=== PATIENT | female | born 2000 | race Caucasian/White ===

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

== ENCOUNTER → 2018-05-29 | Outpatient (CLI) | payer OTHER ==
--- NOTE | 2018-05-29 15:13 | REP ---
COMPLETE ORBIT, SIX VIEWS: HISTORY: Contusion. There is no acute fracture or bone lesion. Mucosal thickening is present in the left maxillary sinus. IMPRESSION: Left maxillary sinus mucosal thickening. Electronically Signed by Christophe Grey MD 05/29/2018 03:14 P
--- NOTE | 2018-05-29 15:15 | REP ---
NASAL BONES, THREE VIEWS: HISTORY: Contusion. There is no acute fracture or bone lesion. Mucosal thickening is present in the left maxillary sinus. The remaining visualized sinuses are clear. IMPRESSION: Left maxillary sinus mucosal thickening. Electronically Signed by Christophe Grey MD 05/29/2018 03:23 P
== END ==
LOC: M WUC 14:20
PROVIDERS: ATTEND Physician Assistant
DX: S00.33XA Contusion of nose, initial encounter (principal); S00.03XA Contusion of scalp, initial encounter; X58.XXXA Exposure to other specified factors, initial encounter; Y92.89 Other specified places as the place of occurrence of the external cause

== ENCOUNTER → 2018-11-21 | Outpatient (REF) | payer OTHER ==
[2018-11-21 23:27] LABS: CHLAMYDIA DNA AMPLIFICATION POSITIVE (NEGATIVE); GC DNA AMPLIFICATION NEGATIVE (NEGATIVE)
== END ==
LOC: M LAB REF 16:01
PROVIDERS: ATTEND Physician Assistant
DX: N39.0 Urinary tract infection, site not specified (principal)

== ENCOUNTER → 2019-03-05 | Outpatient (REF) | payer OTHER | LOC: M LAB REF 16:13 | PROVIDERS: ATTEND Physician Assistant | DX: J02.9 Acute pharyngitis, unspecified (principal) ==

== ENCOUNTER → 2020-03-24 | Outpatient (CLI) | payer OTHER ==
[2020-03-24 12:21] LABS: BASO % 0.5 % (0.0-1.0); EOS # 0.1 10^3/uL (0.0-0.5); EOS % 2.1 % (0.0-3.0); HEMATOCRIT 35.1 % (36.0-47.0); HEMOGLOBIN 11.9 g/dl (12.0-15.5); LYMPH # 2.1 10^3/uL (1.5-5.0); LYMPH % 33.2 % (24.0-44.0); MEAN CORPUSCULAR HGB CONC 33.9 g/dl (32.0-36.5); MEAN CORPUSCULAR VOLUME 88.4 fl (80.0-96.0); MONO # 0.4 10^3/uL (0.0-0.8); MONO % 5.6 % (0.0-5.0); NEUTROPHILS # 3.7 10^3/uL (1.5-8.5); NEUTROPHILS % 58.4 % (36.0-66.0); PLATELET COUNT, AUTOMATED 263 10^3/uL (150-450); RED BLOOD COUNT 3.97 10^6/uL (4.00-5.40); WHITE BLOOD COUNT 6.2 10^3/uL (4.0-10.0)
[2020-03-24 12:50] LABS: ALBUMIN 3.4 GM/DL (3.2-5.2); ALT/SGPT 23 U/L (12-78); BILIRUBIN,TOTAL 0.5 MG/DL (0.2-1.0); BLOOD UREA NITROGEN 7 MG/DL (7-18); CALCIUM LEVEL 8.9 MG/DL (8.5-10.1); CARBON DIOXIDE LEVEL 26 MEQ/L (21-32); CHLORIDE LEVEL 106 MEQ/L (98-107); CREATININE FOR GFR 0.58 MG/DL (0.55-1.30); GLOMERULAR FILTRATION RATE > 60.0 (>60); GLUCOSE, FASTING 91 MG/DL (70-100); LIPASE 72 U/L (73-393); POTASSIUM SERUM 4.2 MEQ/L (3.5-5.1); SODIUM LEVEL 138 MEQ/L (136-145); TOTAL PROTEIN 6.7 GM/DL (6.4-8.2)
== END ==
LOC: M WUC 10:06
PROVIDERS: ATTEND Physician Assistant
DX: R19.7 Diarrhea, unspecified (principal)

== ENCOUNTER → 2020-06-07 | Outpatient (CLI) | payer OTHER ==
--- NOTE | 2020-06-07 12:51 | REP ---
INDICATION: FALL SAME LEVEL COMPARISON: None. TECHNIQUE: AP, lateral, bilateral oblique and sunrise views. FINDINGS: The osseous structures and joint spaces are intact and normal. There is no evidence for acute fracture or dislocation. No joint effusion is appreciated. Surrounding soft tissues are unremarkable. No subcutaneous emphysema or radiodense foreign body. IMPRESSION: No acute fracture or dislocation. <Electronically signed by Aurelio Greer > 06/07/20 [id number]
== END ==
LOC: M WUC 12:32
PROVIDERS: ATTEND Physician Assistant
DX: S80.01XA Contusion of right knee, initial encounter (principal); W01.0XXA Fall on same level from slipping, tripping and stumbling without subsequent striking against object, initial encounter; Y92.9 Unspecified place or not applicable

== ENCOUNTER → 2020-09-18 | Outpatient (CLI) | payer OTHER ==
[~2020-09-18] MED LIST: HYDR100T PO; HYDR50CA2 PO; OMEP-221; SERT50TA29
== END ==
LOC: M LABSMTC 11:53
PROVIDERS: ATTEND Anesthesiology
DX: Z01.812 Encounter for preprocedural laboratory examination (principal); Z20.822 Contact with and (suspected) exposure to COVID-19

== ENCOUNTER → 2020-10-21 | Outpatient (CLI) | payer OTHER ==
[~2020-10-21] MED LIST changes: +PROAAER10 INH; +SUCR1TA PO
== END ==
LOC: M LABSMTC 09:34
PROVIDERS: ATTEND Anesthesiology
DX: Z01.812 Encounter for preprocedural laboratory examination (principal); Z20.822 Contact with and (suspected) exposure to COVID-19

== ENCOUNTER 2020-10-24 12:44 | Inpatient (IN) | payer OTHER ==
[~2020-10-24] VITALS: Ht 165.1 cm; Wt 90.5 kg
[2020-10-24] MEDS ORDERED: NS 1,000 ML IV ONE (13:10)
[2020-10-24] MEDS ORDERED: ACETAMINOPHEN 500 MG TAB PO ONE (13:35)
[2020-10-24 13:45] LABS: BASO % 0.2 % (0.0-1.0); HEMATOCRIT 36.9 % (36.0-47.0); HEMOGLOBIN 12.1 g/dl (12.0-15.5); LYMPH # 1.1 10^3/uL (1.5-5.0); LYMPH % 5.7 % (24.0-44.0); MEAN CORPUSCULAR HEMOGLOBIN 29.4 pg (27.0-33.0); MEAN CORPUSCULAR HGB CONC 32.8 g/dl (32.0-36.5); MEAN CORPUSCULAR VOLUME 89.6 fl (80.0-96.0); MONO # 0.3 10^3/uL (0.0-0.8); MONO % 1.7 % (2.0-8.0); NEUTROPHILS # 17.8 10^3/uL (1.5-8.5); NEUTROPHILS % 91.8 % (36.0-66.0); PLATELET COUNT, AUTOMATED 339 10^3/uL (150-450); RED BLOOD COUNT 4.12 10^6/uL (4.00-5.40); WHITE BLOOD COUNT 19.4 10^3/uL (4.0-10.0)
[2020-10-24] MEDS ORDERED: OXYTOCIN 30 UNITS IN 0.9% NaCl 500ML IV BAG (J2590) As Ordered ONE (13:53)
[2020-10-24] MEDS ORDERED: LIDOCAINE 1% MDV 20ML VIAL As Ordered ONE (14:08)
[2020-10-24 14:53] LABS: ALBUMIN 2.9 GM/DL (3.2-5.2); ALT/SGPT 15 U/L (12-78); BILIRUBIN,DIRECT 0.1 MG/DL (0.0-0.2); BILIRUBIN,TOTAL 0.3 MG/DL (0.2-1.0); BLOOD UREA NITROGEN 13 MG/DL (7-18); CALCIUM LEVEL 8.5 MG/DL (8.5-10.1); CARBON DIOXIDE LEVEL 21 MEQ/L (21-32); CHLORIDE LEVEL 103 MEQ/L (98-107); CREATININE FOR GFR 0.87 MG/DL (0.55-1.30); GLOMERULAR FILTRATION RATE > 60.0 (>60); GLUCOSE, FASTING 90 MG/DL (70-100); HCG, SERUM QUANTITATIVE 24032 MIU/ML; LIPASE 72 U/L (73-393); POTASSIUM SERUM 3.7 MEQ/L (3.5-5.1); SODIUM LEVEL 137 MEQ/L (136-145); TOTAL PROTEIN 7.1 GM/DL (6.4-8.2)
[2020-10-24] MEDS ORDERED: MEASLES,MUMPS,RUBELLA VACCINE INJ (MMR-II) (90707) SC SCH (14:55)
[2020-10-24] MEDS ORDERED: IBUPROFEN 600MG TAB PO PRN (14:55)
[2020-10-24] MEDS ORDERED: DOCUSATE SODIUM 100MG CAPSULE PO PRN (14:55)
[2020-10-24] MEDS ORDERED: RHOGAM 300 MCG (1500 IU) INJ (J2790) IM SCH (14:55)
[2020-10-24] MEDS ORDERED: DIBUCAINE 1% OINTMENT 30GM TOP PRN (14:55)
[2020-10-24] MEDS ORDERED: OXYTOCIN DRIP 30 UNITS in IV 1 EA IV SCH (14:55)
[2020-10-24] MEDS ORDERED: LIDOCAINE 1% MDV 20ML VIAL INFIL ONE (14:55)
[2020-10-24] MEDS ORDERED: ACETAMINOPHEN TAB 650MG DOSE (2X325MG) PO PRN (14:55)
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
--- NOTE | 2020-10-24 16:08 | DNPDOC ---
[facility] Delivery Note Delivery Note DATE OF DELIVERY: 10/24/20 PREDELIVERY DIAGNOSIS: unknown gestational age in active labor with SROM POST DELIVERY DIAGNOSIS: Delivered. PROCEDURE: Spontaneous vaginal delivery FRONT DESK SUPERVISOR: Dr. Carmella Lyman MD ANESTHESIA: 1% lidocaine for vaginal repair ESTIMATED BLOOD LOSS: 200 mL. FINDINGS: 5 pounds 15 ounces (2700g) male , Score 9/9 DELIVERY SUMMARY: Glory is a 20yo [id number] s/p uncomplicated at unknown gestational age (presumed term given size and features) after presenting in active labor, delivering at 1356 on 10/24/20. She presented to ER for abdominal pain and states that she did not know she was . In the ER she was feeling the urge to p ush and was quickly brought up to L&D on a stretcher. SROM occurred at some point prior to presentation, she began feeling ctx at 0600 this morning but uncertain time of ROM. On first SCE, she was C/C/+1. With good maternal effort and a few sets of pushes, infant's head delivered OA, restituted KILEY. 1 loose nuchal cord reduced and there was a left compound hand. Left anterior shoulder delivered easily followed by posterior shoulder and corpus. was vigorous with lusty cry, apgars 9/9, placed on maternal abdomen. After approximately 4 minutes, cord was clamped x2 and cut by me. With firm traction on the cord and uterine massage, placenta delivered spontaneously and intact with centrally inserted 3 vessel cord. Bimanual massage was performed with firming of the uterus. IV pitcocin was bolused and fundus was firm at u-2cm. Inspection of vagina and perineum revealed a superficial right labial laceration and a small 1mll. 1% lidocaine was injected for anesthesia of the area. 3-0 vicryl suture was used to reapproximate the lacerations in routine fashion with complete hemostasis and excellent reapproximation. Fundus remained firm. All counts correct x2. Mom and baby were doing well when I left the room. MD Esmer Newton Katrina D MD October 24, 2020 16:08
[2020-10-24 16:20] VITALS: BP 139/74
[2020-10-24] MEDS: IBUPROFEN 800 MG TAB PO PRN (20:16)
[2020-10-25] MEDS: ACETAMINOPHEN 500 MG TAB PO PRN ×2 (02:00→20:15)
[2020-10-25 05:49] VITALS: BP 139/85
--- NOTE | 2020-10-25 07:13 | IPNPDOC ---
Progress Note Date of Service: October 25, 2020 Day#: 1 Progress Note PPD 1 SUBJECT: Glory is a 20yo [id number] s/p uncomplicated at unknown gestational age (presumed term given size and features) after presenting in active labor, delivering at 1356 on 10/24/20, doing well day # 1. She has been ambulating without lightheadedness/dizziness, voiding spontaneously without issue and tolerating regular diet. Breast feeding without issue. Reports lochia is like a normal period. No f/c/n/v/CP/SOB. OBJECTIVE: VITAL SIGNS: Within normal limits, afebrile. Alert and oriented times three. Abdomen: Fundus firm at U-2. Soft, NTTP. Extremities: no pain with palpation of calves ASSESSMENT: Glory is a 20yo [id number] s/p uncomplicated at unknown gestational age (presumed term given size and features) after presenting in active labor, delivering at 1356 on 10/24/20, doing well day # 1. Vitals within normal limits, afebrile, hemodynamically stable with no evidence of infection. PLAN: 1. Routine care 2. Tylenol and Motrin for pain. 3. Encourage breast feeding and ambulation. 4. Regular diet 5. Vitals per protocol 6. Likely discharge home tomorrow if meeting all milestones Carmella Lyman MD VS, I&O, 24H, [facility] Vital Signs/I&O Vital Signs Date Time Temp Pulse Resp B/P (MAP) Pulse Ox O2 Delivery O2 Flow Rate FiO2 10/25/20 05:49 99.0 100 20 139/85 (103) 98 Room Air I&O- Last 24 Hours up to 6 AM 10/25/20 05:59 Intake Total 800 ml Output Total 600 ml Balance 200 ml Laboratory Data 24H LABS Laboratory Tests 2 10/24/20 13:22: POC Beta HCG, Quantitative > 2000.0 10/24/20 13:23: Immature Granulocyte % (Auto) 0.6, Neutrophils (%) (Auto) 91.8H, Lymphocytes (%) (Auto) 5.7L, Monocytes (%) (Auto) 1.7L, Eosinophils (%) (Auto) 0.0, Basophils (%) (Auto) 0.2, Neutrophils # (Auto) 17.8H, Lymphocytes # (Auto) 1.1L, Monocytes # (Auto) 0.3, Eosinophils # (Auto) 0.0, Basophils # (Auto) 0.0, Nucleated Red Blood Cells % (auto) 0.0, Anion Gap 13, Glomerular Filtration Rate > 60.0, Calcium Level 8.5, Total Bilirubin 0.3, Direct Bilirubin 0.1, Aspartate Amino Transf (AST/SGOT) 18, Alanine Aminotransferase (ALT/SGPT) 15, Alkaline Phosphatase 273H, Total Protein 7.1, Albumin 2.9L, Albumin/Globulin Ratio 0.7L, Lipase 72L, Human Chorionic Gonadotropin, Quant [id number] 10/24/20 14:54: Hepatitis B Surface Antigen NEGATIVEL 10/24/20 18:29: Serology Scanned Report Hepatitis B Testing CBC/BMP Laboratory Tests 10/24/20 13:23 Carmella Lyman MD October 25, 2020 07:13
[2020-10-25] MEDS ORDERED: BOOSTRIX/ADACEL VACCINE (DIPHTH/PERTUSS/ACELL/TETANUS) 0.5ML SYR IM ONE (09:00)
[2020-10-25] MEDS: PRENATAL VITAMINS CHEWABLE TABLET PO SCH (09:49)
[2020-10-25] MEDS: IBUPROFEN 800 MG TAB PO PRN ×2 (09:50→17:26)
[2020-10-25 11:12] LABS: AMPHETAMINES URINE REFLEX NEGATIVE (NEGATIVE); BARBITURATES URINE REFLEX NEGATIVE (NEGATIVE); BENZODIAZEPINES URINE REFLEX NEGATIVE (NEGATIVE); CANNABINOIDS URINE REFLEX NEGATIVE (NEGATIVE); COCAINE METABOLITE URINE REFLE NEGATIVE (NEGATIVE); METHADONE URINE REFLEX NEGATIVE (NEGATIVE); OPIATES URINE REFLEX NEGATIVE (NEGATIVE); PHENCYCLIDINE URINE REFLEX NEGATIVE (NEGATIVE)
[2020-10-25 12:31] LABS: HIV 1&2 SCREEN CENTAUR NEGATIVE (NEGATIVE)
[2020-10-25 18:25] VITALS: BP 145/92
[2020-10-26] MEDS: IBUPROFEN 800 MG TAB PO PRN ×2 (01:37→09:50)
[2020-10-26] MEDS: ACETAMINOPHEN 500 MG TAB PO PRN (04:48)
[2020-10-26 06:00] VITALS: BP 138/90
[2020-10-26] MEDS: PRENATAL VITAMINS CHEWABLE TABLET PO SCH (08:18)
== END 2020-10-26 12:35 | disposition home or self-care (01) | DRG 560 ==
LOC: EDBD 12:44 → M ED 12:44 → M LDI 13:50 → M OBS 16:15
PROVIDERS: ADMIT Obstetrics & Gynecology; ATTEND Obstetrics & Gynecology
PROC: 10E0XZZ Delivery of Products of Conception, External Approach (ICD-10-PCS; principal; 2020-10-24)
PROC: 0HQ9XZZ Repair Perineum Skin, External Approach (ICD-10-PCS; 2020-10-24)
DX: O64.5XX0 Obstructed labor due to compound presentation, not applicable or unspecified (principal); O09.33 Supervision of pregnancy with insufficient antenatal care, third trimester; Z3A.00 Weeks of gestation of pregnancy not specified; O69.81X0 Labor and delivery complicated by cord around neck, without compression, not applicable or unspecified; O70.0 First degree perineal laceration during delivery; Z37.0 Single live birth

== ENCOUNTER → 2021-01-11 | Outpatient (REF) | payer OTHER | LOC: M SFHCWAGY 18:28 | PROVIDERS: ATTEND Obstetrics & Gynecology | DX: Z12.4 Encounter for screening for malignant neoplasm of cervix (principal) ==

== ENCOUNTER → 2022-09-05 | Outpatient (REF) | payer OTHER ==
[~2022-09-05] MED LIST changes: -OMEP-221; +OMEP40CA5
[2022-09-05 14:34] LABS: HCG, SERUM QUANTITATIVE < 2.6 MIU/ML (<4.2)
[2022-09-05 14:36] LABS: ALBUMIN 3.1 G/DL (3.2-5.2); ALKALINE PHOSPHATASE 131 U/L (46-116); ALT/SGPT 29 U/L (7.0-40); AST/SGOT 13 U/L (<34); BILIRUBIN,TOTAL 0.3 MG/DL (0.3-1.2); BLOOD UREA NITROGEN 8 MG/DL (9-23); CALCIUM LEVEL 8.9 MG/DL (8.5-10.1); CARBON DIOXIDE LEVEL 28 MMOL/L (20-31); CHLORIDE LEVEL 105 MMOL/L (98-107); CHOLESTEROL LEVEL 213 MG/DL (<200); CHOLESTEROL RISK RATIO 3.85 (<5); CREATININE FOR GFR 0.63 MG/DL (0.55-1.30); GLOMERULAR FILTRATION RATE > 60.0 (>60); GLUCOSE, FASTING 82 MG/DL (60-100); HDL CHOLESTEROL 55.2 MG/DL (>40); LDL CHOLESTEROL 132.2 MG/DL (<100); NON-HDL-C 157.8 MG/DL; POTASSIUM SERUM 4.6 MMOL/L (3.5-5.1); SODIUM LEVEL 138 MMOL/L (136-145); TOTAL PROTEIN 6.4 G/DL (5.7-8.2); TRIGLYCERIDES LEVEL 128 MG/DL (<150)
[2022-09-05 14:37] LABS: TOTAL 25(OH) VITAMIN D 19.6 NG/ML (20.0-100.0)
[2022-09-05 14:38] LABS: THYROID STIMULATING HORMONE 1.242 uIU/ML (0.55-4.78)
[2022-09-05 14:44] LABS: BASO % 0.5 % (0.0-1.0); EOS # 0.2 10^3/uL (0.0-0.5); HEMOGLOBIN 11.7 g/dl (12.0-15.5); LYMPH # 2.6 10^3/uL (1.5-5.0); LYMPH % 31.1 % (24.0-44.0); MEAN CORPUSCULAR HEMOGLOBIN 29.8 pg (27.0-33.0); MEAN CORPUSCULAR HGB CONC 33.4 g/dl (32.0-36.5); MEAN CORPUSCULAR VOLUME 89.3 fl (80.0-96.0); MONO # 0.6 10^3/uL (0.0-0.8); MONO % 6.5 % (2.0-8.0); NEUTROPHILS # 5.1 10^3/uL (1.5-8.5); NEUTROPHILS % 59.5 % (36.0-66.0); PLATELET COUNT, AUTOMATED 339 10^3/uL (150-450); RED BLOOD COUNT 3.92 10^6/uL (4.00-5.40); WHITE BLOOD COUNT 8.5 10^3/uL (4.0-10.0)
== END ==
LOC: M LAB REF 12:41
PROVIDERS: ATTEND Nurse Practitioner Family
DX: Z32.00 Encounter for pregnancy test, result unknown (principal); E66.3 Overweight

== ENCOUNTER → 2022-11-30 | Outpatient (CLI) | payer OTHER ==
[2022-11-30 15:10] LABS: HEMOGLOBIN 12.1 g/dl (12.0-15.5); MEAN CORPUSCULAR HEMOGLOBIN 29.9 pg (27.0-33.0); MEAN CORPUSCULAR HGB CONC 33.6 g/dl (32.0-36.5); MEAN CORPUSCULAR VOLUME 88.9 fl (80.0-96.0); PLATELET COUNT, AUTOMATED 295 10^3/uL (150-450); RED BLOOD COUNT 4.05 10^6/uL (4.00-5.40); WHITE BLOOD COUNT 8.4 10^3/uL (4.0-10.0)
[2022-11-30 15:52] LABS: GC DNA AMPLIFICATION NEGATIVE (NEGATIVE)
[2022-11-30 15:58] LABS: HIV 1&2 SCREEN NEGATIVE (NEGATIVE)
[2022-11-30 16:07] LABS: HEPATITIS C VIRUS ABY INDEX 0.12 INDEX (<0.8)
== END ==
LOC: M PLALAB 10:43
PROVIDERS: ATTEND Advanced Practice Midwife
DX: Z34.81 Encounter for supervision of other normal pregnancy, first trimester (principal)

== ENCOUNTER → 2022-12-15 | Outpatient (REF) | payer OTHER ==
[~2022-12-15] MED LIST changes: +BACI500O8 TOP; +CEPH500C PO
[2022-12-15 19:32] LABS: CHOLESTEROL RISK RATIO 3.51 (<5); HDL CHOLESTEROL 61.5 MG/DL (>40); LDL CHOLESTEROL 131.3 MG/DL (<100); NON-HDL-C 154.5 MG/DL
== END ==
LOC: M LAB REF 16:43
PROVIDERS: ATTEND Nurse Practitioner Family
DX: R79.89 Other specified abnormal findings of blood chemistry (principal)

== ENCOUNTER 2022-12-17 18:44 | Emergency (ER) | payer OTHER ==
[~2022-12-17] VITALS: Ht 165.1 cm; Wt 112.7 kg
[~2022-12-17 18:44] MED LIST changes: -BACI500O8 TOP; -CEPH500C PO
[2022-12-17] MEDS ORDERED: BACITRACIN OINTMENT 30GM TUBE TOP ONE (21:30)
[2022-12-17] MEDS ORDERED: CEPHALEXIN 500 MG CAP PO ONE (21:30)
[2022-12-17] MEDS ORDERED: CEPH500C PO (22:29)
[2022-12-17] MEDS ORDERED: BACI500O8 TOP (22:29)
[2022-12-17 22:49] VITALS: BP 124/72; TEMP 97.9; O2SAT 100
== END 2022-12-17 22:50 | disposition home or self-care (01) ==
LOC: M ED 18:44
DX: O26.891 Other specified pregnancy related conditions, first trimester (principal); T24.231A Burn of second degree of right lower leg, initial encounter; L03.115 Cellulitis of right lower limb; J45.909 Unspecified asthma, uncomplicated; E66.9 Obesity, unspecified; F41.9 Anxiety disorder, unspecified; F32.A Depression, unspecified; Z3A.13 13 weeks gestation of pregnancy; Z79.899 Other long term (current) drug therapy

== ENCOUNTER → 2023-01-25 | Outpatient (CLI) | payer OTHER ==
[~2023-01-25] MED LIST changes: +BACI500O8 TOP; +CEPH500C PO
== END ==
LOC: M PLALAB 12:54
PROVIDERS: ATTEND Advanced Practice Midwife
DX: O99.342 Other mental disorders complicating pregnancy, second trimester (principal)

== ENCOUNTER → 2023-01-29 | Outpatient (CLI) | payer OTHER | LOC: M WHC 08:30 | PROVIDERS: ATTEND Advanced Practice Midwife | DX: O99.332 Smoking (tobacco) complicating pregnancy, second trimester (principal); Z3A.19 19 weeks gestation of pregnancy ==

== ENCOUNTER → 2023-03-02 | Outpatient (CLI) | payer OTHER | LOC: M WHC 07:51 | PROVIDERS: ATTEND Obstetrics & Gynecology | DX: Z36.2 Encounter for other antenatal screening follow-up (principal) ==

== ENCOUNTER → 2023-03-26 | Outpatient (CLI) | payer OTHER ==
[~2023-03-26] MED LIST changes: +PRENTAB9 PO
[2023-03-26 15:12] LABS: HEMATOCRIT 32.9 % (36.0-47.0); HEMOGLOBIN 11.2 g/dl (12.0-15.5); MEAN CORPUSCULAR HEMOGLOBIN 31.3 pg (27.0-33.0); MEAN CORPUSCULAR VOLUME 91.9 fl (80.0-96.0); PLATELET COUNT, AUTOMATED 289 10^3/uL (150-450); RED BLOOD COUNT 3.58 10^6/uL (4.00-5.40); WHITE BLOOD COUNT 8.2 10^3/uL (4.0-10.0)
[2023-03-26 17:24] LABS: GC DNA AMPLIFICATION NEGATIVE (NEGATIVE)
== END ==
LOC: M PLALAB 08:24
PROVIDERS: ATTEND Obstetrics & Gynecology
DX: Z34.92 Encounter for supervision of normal pregnancy, unspecified, second trimester (principal)

== ENCOUNTER 2023-05-08 15:35 | Outpatient (CLI) | payer OTHER ==
[~2023-05-08] VITALS: Ht 165.1 cm; Wt 101.4 kg
[2023-05-08 16:00] VITALS: BP 129/94; O2SAT 97
[2023-05-08] MEDS ORDERED: HOME MED LIST COMPLETE! XX SCH (16:05)
[2023-05-08] MEDS ORDERED: IBUP-1114 PO (16:05)
== END 2023-05-08 17:05 | disposition home or self-care (01) ==
LOC: M LDO 15:35
PROVIDERS: ATTEND Specialist
DX: O26.893 Other specified pregnancy related conditions, third trimester (principal); N89.8 Other specified noninflammatory disorders of vagina; O26.23 Pregnancy care for patient with recurrent pregnancy loss, third trimester; Z3A.33 33 weeks gestation of pregnancy; Z88.0 Allergy status to penicillin; Z88.1 Allergy status to other antibiotic agents; Z88.2 Allergy status to sulfonamides
CPT/HCPCS: 59025; G0463

== ENCOUNTER → 2023-05-14 | Outpatient (CLI) | payer OTHER ==
[~2023-05-14] MED LIST changes: +IBUP-1114 PO
== END ==
LOC: M WHC 08:20
PROVIDERS: ATTEND Advanced Practice Midwife
DX: Z34.93 Encounter for supervision of normal pregnancy, unspecified, third trimester (principal); Z3A.34 34 weeks gestation of pregnancy

== ENCOUNTER → 2023-06-06 | Outpatient (REF) | payer OTHER | LOC: M PLALAB 15:41 | PROVIDERS: ATTEND Advanced Practice Midwife | DX: O09.293 Supervision of pregnancy with other poor reproductive or obstetric history, third trimester (principal) ==

== ENCOUNTER → 2023-11-13 | Outpatient (REF) | payer OTHER ==
[~2023-11-13] MED LIST changes: +HYDR50TA70 PO; +NORE1TAB90 PO; +VENTAER INH
[2023-11-16 13:57] LABS: HPV APTIMA Not Detected (Not Detected)
== END ==
LOC: M SFHCWAGY 09:28
PROVIDERS: ATTEND Nurse Practitioner Family
DX: Z12.4 Encounter for screening for malignant neoplasm of cervix (principal)

== ENCOUNTER 2023-11-29 07:26 | Day surgery (SDC) | payer OTHER ==
[~2023-11-29] VITALS: Ht 165.1 cm; Wt 107.7 kg
[~2023-11-29 07:26] MED LIST changes: +LR 1,000 ML IV SCH
[2023-11-29 08:04] LABS: HEMATOCRIT 35.7 % (36.0-47.0); HEMOGLOBIN 11.5 g/dl (12.0-15.5); MEAN CORPUSCULAR HEMOGLOBIN 26.2 pg (27.0-33.0); MEAN CORPUSCULAR HGB CONC 32.2 g/dl (32.0-36.5); MEAN CORPUSCULAR VOLUME 81.3 fl (80.0-96.0); PLATELET COUNT, AUTOMATED 340 10^3/uL (150-450); RED BLOOD COUNT 4.39 10^6/uL (4.00-5.40); WHITE BLOOD COUNT 7.7 10^3/uL (4.0-10.0)
[2023-11-29] MEDS: LR 1,000 ML IV SCH (08:14)
[2023-11-29 08:24] LABS: HCG, SERUM QUALITATIVE NEGATIVE (NEGATIVE)
[2023-11-29] MEDS ORDERED: KETOROLAC 60MG 2ML VIAL As Ordered ONE (08:25)
[2023-11-29] MEDS ORDERED: propofoL 200 MG/20 ML VIAL As Ordered ONE (08:25)
[2023-11-29] MEDS ORDERED: dexmedeTOMIDine (4MCG/ML)200MCG/50ML BTL (PRECEDEX) As Ordered ONE (08:25)
[2023-11-29] MEDS ORDERED: ROCURONIUM BROMIDE 50MG/5ML VIAL As Ordered ONE (08:25)
[2023-11-29] MEDS ORDERED: ONDANSETRON 4MG 2ML VIAL As Ordered ONE (08:25)
[2023-11-29] MEDS ORDERED: fentaNYL 100 MCG/2 ML INJECTION As Ordered ONE (08:25)
[2023-11-29] MEDS ORDERED: MIDAZOLAM INJ 2MG/2ML VIAL As Ordered ONE (08:25)
[2023-11-29] MEDS ORDERED: LIDOCAINE 2% 100MG/5ML SDV (FOR ANES.) As Ordered ONE (08:26)
[2023-11-29] MEDS ORDERED: LACRILUBE (AKWA TEARS) OPHTH OINT 3.5GM As Ordered ONE (08:29)
[2023-11-29] MEDS ORDERED: SUGAMMADEX SODIUM 500 MG/5 ML VIAL (BRIDION) As Ordered ONE (10:01)
[2023-11-29] MEDS ORDERED: ACETAMINOPHEN 1000MG 100ML IV BAG As Ordered ONE (10:01)
[2023-11-29] MEDS: SILVER NITRATE APPLICATOR (1 = QTY 10) As Ordered ONE (10:25)
[2023-11-29] MEDS ORDERED: LR 1,000 ML IV SCH (10:30)
[2023-11-29] MEDS ORDERED: ONDANSETRON 4MG 2ML VIAL IV PRN (10:30)
[2023-11-29] MEDS ORDERED: PERC5TAB12 PO (10:39)
[2023-11-29] MEDS ORDERED: IBUP80TA PO (10:39)
[2023-11-29] MEDS: fentaNYL 100 MCG/2 ML INJECTION IV PRN (10:44)
[2023-11-29] MEDS: HYDROMORPHONE HCL 0.5 MG/ 0.5 ML SYRINGE IV PRN (10:55)
[2023-11-29] MEDS: oxyCODONE 5MG TAB PO PRN (10:55)
[2023-11-29 11:50] VITALS: BP 127/71; TEMP 97.8; O2SAT 96
== END 2023-11-29 12:10 | disposition home or self-care (01) ==
LOC: M SDC 07:26
PROVIDERS: ATTEND Obstetrics & Gynecology
DX: Z30.2 Encounter for sterilization (principal); F43.10 Post-traumatic stress disorder, unspecified; F41.9 Anxiety disorder, unspecified; F32.A Depression, unspecified; Z87.891 Personal history of nicotine dependence; J45.909 Unspecified asthma, uncomplicated; Z79.51 Long term (current) use of inhaled steroids; Z79.899 Other long term (current) drug therapy; Z88.2 Allergy status to sulfonamides; Z88.1 Allergy status to other antibiotic agents; Z88.0 Allergy status to penicillin
CPT/HCPCS: 36415; 58661; 84703; 85027; 86850; 86900; 86901; 88305; J0131; J0665; J1100; J1170; J1885; J2250; J2405; J3010

== ENCOUNTER → 2024-02-22 | Outpatient (REF) | payer OTHER ==
[~2024-02-22] MED LIST changes: +IBUP80TA PO; -LR 1,000 ML IV SCH; +PERC5TAB12 PO
== END ==
LOC: M LAB REF 17:02
PROVIDERS: ATTEND Physician Assistant
DX: N30.01 Acute cystitis with hematuria (principal)

== ENCOUNTER 2024-10-20 17:53 | Emergency (ER) | payer OTHER ==
[~2024-10-20] VITALS: Ht 165.1 cm; Wt 97.4 kg
[2024-10-20 19:39] LABS: BASO % 0.4 % (0.0-1.0); EOS # 0.1 10^3/uL (0.0-0.5); EOS % 0.7 % (0.0-3.0); HEMOGLOBIN 14.5 g/dl (12.0-15.5); LYMPH # 4.1 10^3/uL (1.5-5.0); LYMPH % 41.9 % (24.0-44.0); MEAN CORPUSCULAR HEMOGLOBIN 29.7 pg (27.0-33.0); MEAN CORPUSCULAR HGB CONC 34.5 g/dl (32.0-36.5); MEAN CORPUSCULAR VOLUME 86.1 fl (80.0-96.0); MONO # 0.7 10^3/uL (0.0-0.8); NEUTROPHILS # 4.9 10^3/uL (1.5-8.5); NEUTROPHILS % 49.7 % (36.0-66.0); PLATELET COUNT, AUTOMATED 388 10^3/uL (150-450); RED BLOOD COUNT 4.88 10^6/uL (4.00-5.40); WHITE BLOOD COUNT 9.8 10^3/uL (4.0-10.0)
[2024-10-20 19:55] LABS: LIPASE 32 U/L (12-53)
[2024-10-20 19:57] LABS: ALKALINE PHOSPHATASE 147 U/L (35-104); ALT/SGPT 20 U/L (7.0-40); AST/SGOT 14 U/L (<34); BILIRUBIN,DIRECT 0.2 MG/DL (<0.4); BILIRUBIN,TOTAL 0.6 MG/DL (0.3-1.2); BLOOD UREA NITROGEN 9 MG/DL (9-23); CALCIUM LEVEL 9.7 MG/DL (8.5-10.1); CARBON DIOXIDE LEVEL 32 MMOL/L (20-31); CHLORIDE LEVEL 100 MMOL/L (98-107); CREATININE FOR GFR 0.85 MG/DL (0.55-1.30); GLOMERULAR FILTRATION RATE > 90.0 (>60); GLUCOSE, FASTING 101 MG/DL (60-100); POTASSIUM SERUM 3.6 MMOL/L (3.5-5.1); SODIUM LEVEL 141 MMOL/L (136-145); TOTAL PROTEIN 7.7 G/DL (5.7-8.2)
[2024-10-20 20:07] LABS: HCG, SERUM QUALITATIVE NEGATIVE (NEGATIVE)
[2024-10-20 20:36] VITALS: BP 180/87; TEMP 97.8; O2SAT 98
[2024-10-20 21:03] LABS: KETONE, URINE AUTO RFX TRACE mg/dL (NEGATIVE); MUCUS, URINE RFX LARGE (NEGATIVE); NITRITE, URINE AUTO RFX NEGATIVE (NEGATIVE); RBC, URINE AUTO RFX 2 /HPF (0-3); SQUAM EPITHELIAL CELL UR AURFX 10 /HPF (0-6)
[2024-10-20 21:04] LABS: LEUKOCYTE ESTERASE UR AUTO RFX TRACE (NEGATIVE); WBC, URINE AUTO RFX 13 /HPF (0-3)
== END 2024-10-20 21:57 | disposition left against medical advice (07) ==
LOC: M ED 17:53
DX: Z53.21 Procedure and treatment not carried out due to patient leaving prior to being seen by health care provider (principal)

== ENCOUNTER → 2024-12-26 | Outpatient (REF) | payer OTHER | LOC: M LAB REF 14:36 | PROVIDERS: ATTEND Physician Assistant | DX: L03.115 Cellulitis of right lower limb (principal) ==